=== PATIENT | female | born 1940 | race Caucasian/White ===

== ENCOUNTER 2018-07-20 07:18 | Day surgery (SDC) | payer MEDICARE, OTHER ==
[~2018-07-20] VITALS: Ht 157.5 cm; Wt 49.9 kg
[~2018-07-20 07:18] MED LIST: ASPIRIN LOW DOS81 M3 PO; VITAMI16 PO; VITAMIN B-1100 M1 PO; VITAMIN D1000 UNI1 PO
[2018-07-20 10:58] VITALS: BP 139/62
== END 2018-07-20 11:10 | disposition home or self-care (01) ==
LOC: ENDO 07:18 → ORM 09:45 → ENDO 11:10
PROVIDERS: ATTEND Surgery
PROC: 0DJD8ZZ Inspection of Lower Intestinal Tract, Via Natural or Artificial Opening Endoscopic (ICD-10-PCS; principal; 2018-07-20)
DX: R19.5 Other fecal abnormalities (principal); R19.7 Diarrhea, unspecified; K57.30 Diverticulosis of large intestine without perforation or abscess without bleeding
CPT/HCPCS: G0104

== ENCOUNTER → 2022-12-31 | Emergency (ER) | payer MEDICARE, OTHER ==
[~2022-12-31] VITALS: Ht 157.5 cm; Wt 59.0 kg
[2022-12-31] VITALS (9 sets, daily range): BP systolic 125–161; BP diastolic 67–80
[2022-12-31 07:45] LABS: BASO% 0.6 % (0-3); EOS% 1.7 % (0-8); HEMATOCRIT 39.3 % (37.0-47.0); HEMOGLOBIN 13.1 g/dl (12.0-16.0); IMMATURE GRANULOCYTES 0.6 % (0.0-5.0); LYMPH% 13.9 % (15-41); MEAN CELL VOLUME 89.1 fL CALC (80.0-100.0); MEAN CORPUSCULAR HGB 29.7 pG CALC (26.0-32.0); MEAN CORPUSCULAR HGB CONC 33.3 g/dL CAL (32.0-36.0); NEUT# 7.94 thou/uL (2.00-7.15); NEUT% 74.2 % (42-76); RED BLOOD COUNT 4.41 mill/uL (4.20-5.60); RED CELL DISTRI WIDTH 13.8 % (11.5-15.5)
[2022-12-31 07:57] LABS: ALBUMIN 4.3 g/dL (3.2-5.0); ALKALINE PHOSPHATASE 81 u/l (38-126); ANION GAP 9 (6-22 (CALC)); BUN 11 mg/dL (8-23); BUN/CREATININE RATIO 16 (12-20 (CALC)); CARBON DIOXIDE 29 mmol/l (22-30); CHLORIDE 105 mmol/l (95-108); CREATININE 0.7 mg/dL (0.5-1.0); GFR FOR AFR.AMER. > 60 ML/MIN (>=60 (CALC)); GFR OTHER RACES > 60 ML/MIN (>=60 (CALC)); LIPASE 50 u/l (23-300); MAGNESIUM 2.1 mg/dL (1.6-2.3); POTASSIUM 3.9 mmol/l (3.5-5.1); SGOT/AST 20 u/l (9-36); SODIUM 139 mmol/l (137-146); TOTAL PROTEIN 7.4 g/dL (6.3-8.2)
[2022-12-31 07:59] LABS: BILIRUBIN, TOTAL 0.9 mg/dL (0.02-1.3)
[2022-12-31 10:57] LABS: URINE BILIRUBIN - DIPSTICK NEGATIVE (NEGATIVE); URINE BLOOD DIPSTICK TRACE-INTACT (NEGATIVE); URINE COLOR YELLOW; URINE GLUCOSE - DIPSTICK NEGATIVE (NEGATIVE); URINE KETONE 15 mg/dL (NEGATIVE); URINE LEUK ESTERASE NEGATIVE (NEGATIVE); URINE PH 5.5 (4.5-8.0); URINE PROTEIN - DIPSTICK NEGATIVE (NEG-TRACE); URINE SPECIFIC GRAVITY 1.015; URINE UROBILINOGEN - DIPSTICK 0.2 E.U./dL (0.2)
[2022-12-31 10:58] LABS: URINE NITRITE - DIPSTICK NEGATIVE (Negative)
== END | disposition home or self-care (01) ==
LOC: ED 07:06
PROVIDERS: Internal Medicine
DX: R07.9 Chest pain, unspecified (principal)